=== PATIENT | male | born 1960 | race Caucasian/White ===

== ENCOUNTER 2021-02-02 15:13 | Outpatient (REF) | payer OTHER, SELFPAY ==
--- NOTE | ~2021-02-02 | XR_ITS ---
EXAMINATION: LUMBAR SPINE 2 VIEWS. CERVICAL SPINE COMPLETE 6 VIEWS. CLINICAL INFORMATION: Pain. Pain COMPARISON: None TECHNIQUE: 6 views cervical spine. 2 views lumbar spine. FINDINGS: Lumbar spine: There is advanced disc space narrowing at L4-L5 with anterior and posterior spurring and moderate disc space narrowing L5-S1. No fracture or destructive process. Cervical spine: Prevertebral soft tissues are normal. There is advanced disc space narrowing C6-C7 with anterior and posterior spurring and there is mild anterior spondylitic change at C5-C6. No fracture or destructive process. There is mild encroachment on the right and left C5-C7 neural foramen on the basis of spurs. The lateral masses of C1 and odontoid are intact. XR/XR lumbar spine 2-3V IMPRESSION: Multifocal degenerative changes as described.
--- NOTE | ~2021-02-02 | XR_ITS ---
EXAMINATION: LUMBAR SPINE 2 VIEWS. CERVICAL SPINE COMPLETE 6 VIEWS. CLINICAL INFORMATION: Pain. Pain COMPARISON: None TECHNIQUE: 6 views cervical spine. 2 views lumbar spine. FINDINGS: Lumbar spine: There is advanced disc space narrowing at L4-L5 with anterior and posterior spurring and moderate disc space narrowing L5-S1. No fracture or destructive process. Cervical spine: Prevertebral soft tissues are normal. There is advanced disc space narrowing C6-C7 with anterior and posterior spurring and there is mild anterior spondylitic change at C5-C6. No fracture or destructive process. There is mild encroachment on the right and left C5-C7 neural foramen on the basis of spurs. The lateral masses of C1 and odontoid are intact. XR/XR cervical spine min 6V IMPRESSION: Multifocal degenerative changes as described.
[2021-02-02 16:05] LABS: MANUAL DIFF FLAG NO
[2021-02-02 16:13] LABS: Basophils Absolute Auto 0.1 X10*3/uL (0.0-0.2); Basophils Percent Auto 0.8 % (0-2); Eosinophils Absolute Auto 0.3 X10*3/uL (0.0-0.4); Eosinophils Percent Auto 4.7 % (0-4); Hematocrit 39.3 % (42-52); Hemoglobin 12.7 g/dl (14.0-18.0); Imm Gran Abs Auto 0.01 X10*3/uL (0.00-0.03); Imm Gran Pct Auto 0.2 % (0.0-0.4); Lymphocytes Absolute Auto 1.7 X10*3/uL (1.2-4.9); Lymphocytes Percent Auto 27.3 % (20-40); Mean Corpuscular HGB Conc 32.3 g/dl (31.0-36.0); Mean Corpuscular Hemoglobin 28.5 pg (27.0-33.0); Mean Corpuscular Volume 88.3 fL (80-98); Mean Platelet Volume 9.4 fL (9.4-12.4); Monocytes Absolute Auto 0.6 X10*3/uL (0.1-1.2); Monocytes Percent Auto 9.5 % (2-11); Neutrophils Absolute Auto 3.7 X10*3/uL (2.0-8.3); Neutrophils Percent Auto 57.5 % (45-73); Platelet Count 355 X10*3/uL (160-400); Red Blood Count 4.45 X10*6/uL (4.60-5.80); Red Cell Distribution Width 14.1 % (11.0-16.0); White Blood Count 6.3 X10*3/uL (4.8-10.8)
[2021-02-02 16:44] LABS: Alanine Aminotransferase 21 U/L (0-40); Albumin Level 4.3 g/dL (3.5-5.0); Alkaline Phosphatase 70 U/L (39-117); Anion Gap 11 (12-20); Aspartate Amino Transferase 47 U/L (5-37); Bilirubin Total < 0.2 mg/dL (0.0-1.0); Blood Urea Nitrogen 15 mg/dL (9-16); Calcium 9.6 mg/dL (8.4-10.2); Carbon Dioxide 29 mmol/L (22-29); Chloride 104 mmol/L (96-108); Cholesterol 170 mg/dL; Estimated Glomerular Filt Rate > 60; Glucose Random 94 mg/dL (60-115); HDL Cholesterol 56 mg/dL; LDL Cholesterol Calculated 84 mg/dl; Potassium 4.8 mmol/L (3.3-5.1); Sodium 139 mmol/L (135-145); Total Protein 7.1 g/dL (6.5-8.0); Triglycerides 150 mg/dL
[2021-02-02 17:00] LABS: Prostate Specific Antigen 0.37 ng/mL (<0.05-4.0)
== END 2021-02-02 15:14 | disposition home or self-care (01) ==
LOC: HO.XRAY 15:13
PROVIDERS: PCP Internal Medicine; Visit Provider Internal Medicine
DX: Z00.00 Encounter for general adult medical examination without abnormal findings (principal); Z12.5 Encounter for screening for malignant neoplasm of prostate; M54.2 Cervicalgia; M54.5 Low back pain
CPT/HCPCS: 36415; 72052; 72100; 80053; 80061; 84153; 85025

== ENCOUNTER 2021-02-20 13:48 | Outpatient (REF) | payer OTHER, SELFPAY ==
--- NOTE | ~2021-02-20 | MR_ITS ---
EXAMINATION: MR CERVICAL SPINE WITHOUT CONTRAST CLINICAL INFORMATION: Right arm numbness. COMPARISON: X-ray cervical spine dated 02/03/2020. TECHNIQUE: MRI of the cervical spine was obtained using routine sequences without contrast. FINDINGS: VERTEBRAL BODIES AND PARASPINAL SOFT TISSUES: The marrow signal is within normal limits. There are no compression fractures. Mild retrosubluxation evident at C4-C5. There is a mild anterolisthesis at the C5-C6 level with mild posterior endplate edema. The paraspinal soft tissues appear normal. The vertebral artery flow voids are maintained. The imaged lung apices are grossly clear. CERVICOMEDULLARY JUNCTION AND VISUALIZED POSTERIOR FOSSA: The craniovertebral junction and imaged portions of the brain parenchyma appear normal. There is T2 hyperintense signal abnormality within the cord at the C5-C6 level due to severity of central canal stenosis. No syrinx is seen. SPINAL LEVELS: C2-C3: No disc pathology, central canal stenosis, or foraminal narrowing. C3-C4: Central disc protrusion superimposed upon a broad-based disc-osteophyte complex flattens the ventral thecal sac with mild impression upon the anterior cord. Very mild central canal stenosis. Severe right foraminal narrowing evident from bulky uncovertebral joint spurring. C4-C5: Left paracentral disc protrusion superimposed upon a disc-osteophyte complex with ventral cord distortion and mild central canal stenosis. Severe bilateral foraminal narrowing. C5-C6: Anterior subluxation and broad-based disc-osteophyte complex with posterior ligamentous thickening and facet arthropathy resulting in high-grade central canal stenosis and effacement of CSF within the thecal sac. Severe bilateral foraminal narrowing. Cord compression with signal change which may represent edema and/or myelomalacia. C6-C7: Broad-based left paracentral disc protrusion superimposed upon a disc-osteophyte complex and thickening of the ligamentum flavum resulting in severe central canal stenosis and [id number] cord distortion without intramedullary signal change. Severe bilateral foraminal narrowing. C7-T1: Minimal annular bulge. No central canal stenosis or foraminal encroachment. MR/MR cervical spine wo con IMPRESSION: High-grade central canal stenosis due to spondylitic changes at the C5-C6 level with a mild anterolisthesis. Signal abnormality within the cord which may be due to edema and/or myelomalacia. Severe bilateral foraminal narrowing. Broad-based left paracentral disc protrusion and disc-osteophyte complex at the C6-C7 level with severe central canal stenosis and [id number] cord deformity. Severe foraminal narrowing. Left paracentral disc protrusion and disc osteophyte complex at the C4-C5 level with significant foraminal encroachment and mild central canal stenosis. Central disc protrusion and disc-osteophyte complex at C3-C4 with mild impression upon the ventral cord. Severe right foraminal narrowing with uncovertebral joint spurring. Imaging findings reported to Dr. Raymond at 1:13 PM on 02/22/2021.
== END 2021-02-20 13:49 | disposition home or self-care (01) ==
LOC: HO.MRI 13:48
PROVIDERS: PCP Internal Medicine; Visit Provider Internal Medicine
DX: R20.2 Paresthesia of skin (principal); M48.02 Spinal stenosis, cervical region
CPT/HCPCS: 72141

== ENCOUNTER 2021-03-26 07:16 | Outpatient (REF) | payer OTHER, SELFPAY ==
--- NOTE | ~2021-03-26 | MR_ITS ---
EXAMINATION: MR LUMBAR SPINE WITHOUT CONTRAST CLINICAL INFORMATION: Low back pain. Right leg numbness and tingling. No history of trauma. COMPARISON: Lumbar spine radiographs 02/02/2021. TECHNIQUE: MRI of the lumbar spine was obtained using routine sequences without contrast. FINDINGS: VERTEBRAL BODIES AND PARASPINAL STRUCTURES: Four lumbar-type vertebral bodies are identified with near complete bilateral sacralization of the presumed L5 vertebral body. A rudimentary intervertebral disc is noted at the presumed level of L5-S1. Vertebral bodies are enumerated with reference to the inferior most rib-bearing vertebral body which is presumed to represent T12. 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 The L2 vertebral body demonstrates a 1.8 cm diameter rounded focus with intrinsic high T1-weighted signal intensity having the appearance of a hemangioma. Moderate endplate discogenic marrow signal changes are noted at L3-L4. CONUS MEDULLARIS AND CAUDA EQUINA: Normal, terminating at the level of T12-L1.. SPINAL LEVELS: T12-L1: No central or foraminal stenoses. Normal intervertebral disc. L1-L2: No central or foraminal stenoses. Mild bilateral ligamentum flavum hypertrophy. L2-L3: Mild central stenosis. Mild bilateral foraminal stenosis. Findings arise in the setting of a mild posterior broad-based disc bulge with bilateral intraforaminal extension. Furthermore, mild bilateral ligamentum flavum hypertrophy is noted. L3-L4: Moderate right foraminal stenosis. Mild central stenosis. Mild left foraminal stenosis. Findings are noted in the setting of a mild left and moderate posterior broad-based disc with bilateral intraforaminal extension which in combination with moderate right facet hypertrophic changes results in approximately 50% right foraminal narrowing with mild impingement upon the right L3 nerve roots. L4-L5: Marked right foraminal stenosis with right L4 nerve root impingement. Moderate central disc protrusion with mild central stenosis. Moderate left foraminal stenosis with mild left L4 nerve root impingement. Greater than 75% right foraminal stenosis is present secondary to a right intraforaminal disc protrusion with an overlying 3 mm caudal disc extrusion projecting into the right neural foramen in combination with moderate right facet hypertrophic changes (series 2 image 11). A central mild disc protrusion with annular T2 hyperintensity which may represent an annular fissure partially effaces the ventral thecal sac CSF space without impingement upon the adjacent traversing nerve roots. 50-75% left foraminal narrowing secondary to an intraforaminal disc protrusion and mild anterior extension of moderate left facet hypertrophic changes is noted. L5-S1: A rudimentary intervertebral disc is present at this level. No central or foraminal stenoses are noted. 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 MR/MR lumbar spine wo con IMPRESSION: 1. 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 The presence of these vertebral body anomalies may give rise to ambiguity in vertebral body enumeration. Within the enumeration scheme employed for this report, a rudimentary intervertebral disc space is present at L5-S1. 2. L4-L5 marked right foraminal stenosis with right L4 nerve root impingement. 3. L4-L5 moderate left foraminal stenosis with mild left L4 nerve root impingement. 4. L3-L4 moderate right foraminal stenosis with mild right L3 nerve root impingement. 5. Elsewhere in the lumbar spine, multilevel chronic spondylosis is noted without associated direct nerve root impingement or marked central or foraminal stenoses.
== END 2021-03-26 07:17 | disposition home or self-care (01) ==
LOC: HO.MRI 07:16
PROVIDERS: PCP Internal Medicine; Visit Provider Internal Medicine
DX: M54.16 Radiculopathy, lumbar region (principal)
CPT/HCPCS: 72148

== ENCOUNTER 2021-04-11 11:53 | Outpatient (REF) | payer OTHER, SELFPAY ==
[2021-04-11 14:06] LABS: MANUAL DIFF FLAG NO
[2021-04-11 14:10] LABS: Basophils Percent Auto 0.6 % (0-2); Eosinophils Absolute Auto 0.6 X10*3/uL (0.0-0.4); Eosinophils Percent Auto 9.1 % (0-4); Hemoglobin 13.2 g/dl (14.0-18.0); Imm Gran Abs Auto 0.03 X10*3/uL (0.00-0.03); Imm Gran Pct Auto 0.4 % (0.0-0.4); Lymphocytes Absolute Auto 1.7 X10*3/uL (1.2-4.9); Lymphocytes Percent Auto 24.6 % (20-40); Mean Corpuscular HGB Conc 32.2 g/dl (31.0-36.0); Mean Platelet Volume 9.6 fL (9.4-12.4); Monocytes Absolute Auto 0.7 X10*3/uL (0.1-1.2); Monocytes Percent Auto 10.1 % (2-11); Neutrophils Absolute Auto 3.7 X10*3/uL (2.0-8.3); Neutrophils Percent Auto 55.2 % (45-73); Platelet Count 322 X10*3/uL (160-400); Red Blood Count 4.71 X10*6/uL (4.60-5.80); Red Cell Distribution Width 14.6 % (11.0-16.0); White Blood Count 6.7 X10*3/uL (4.8-10.8)
[2021-04-11 14:21] LABS: Anion Gap 10 (12-20); Blood Urea Nitrogen 14 mg/dL (9-16); Calcium 9.9 mg/dL (8.4-10.2); Carbon Dioxide 30 mmol/L (22-29); Chloride 105 mmol/L (96-108); Estimated Glomerular Filt Rate > 60; Glucose Random 76 mg/dL (60-115); Potassium 4.3 mmol/L (3.3-5.1); Sodium 141 mmol/L (135-145)
== END 2021-04-11 11:54 | disposition home or self-care (01) ==
LOC: HO.10HDL 11:53
PROVIDERS: Visit Provider Internal Medicine
DX: Z02.1 Encounter for pre-employment examination (principal)
CPT/HCPCS: 36415; 80048; 85025

== ENCOUNTER 2021-07-13 07:52 | Outpatient (REF) | payer OTHER, SELFPAY ==
[2021-07-13 10:18] LABS: MANUAL DIFF FLAG NO
[2021-07-13 10:23] LABS: Basophils Percent Auto 0.6 % (0-2); Eosinophils Absolute Auto 0.2 X10*3/uL (0.0-0.4); Eosinophils Percent Auto 4.8 % (0-4); Hematocrit 41.2 % (42.0-52.0); Hemoglobin 13.4 g/dl (14.0-18.0); Imm Gran Abs Auto 0.01 X10*3/uL (0.00-0.03); Imm Gran Pct Auto 0.2 % (0.0-0.4); Lymphocytes Absolute Auto 1.8 X10*3/uL (1.2-4.9); Lymphocytes Percent Auto 36.5 % (20-40); Mean Corpuscular HGB Conc 32.5 g/dl (31.0-36.0); Mean Corpuscular Hemoglobin 28.8 pg (27.0-33.0); Mean Corpuscular Volume 88.6 fL (80.0-98.0); Mean Platelet Volume 9.7 fL (9.4-12.4); Monocytes Absolute Auto 0.5 X10*3/uL (0.1-1.2); Neutrophils Absolute Auto 2.3 x10*3/uL (2.0-8.3); Neutrophils Percent Auto 47.9 % (45-73); Platelet Count 316 X10*3/uL (160-400); Red Blood Count 4.65 X10*6/uL (4.60-5.80); Red Cell Distribution Width 14.9 % (11.0-16.0); White Blood Count 4.8 X10*3/uL (4.8-10.8)
[2021-07-13 10:50] LABS: Alanine Aminotransferase 26 U/L (0-40); Albumin Level 4.2 g/dL (3.5-5.0); Alkaline Phosphatase 72 U/L (39-117); Anion Gap 10 (12-20); Aspartate Amino Transferase 45 U/L (5-37); Bilirubin Total 0.5 mg/dL (0.0-1.0); Blood Urea Nitrogen 19 mg/dL (9-16); Calcium 9.4 mg/dL (8.4-10.2); Carbon Dioxide 26 mmol/L (22-29); Chloride 106 mmol/L (96-108); Estimated Glomerular Filt Rate > 60; Glucose Random 117 mg/dL (60-115); Iron 66 mcg/dL (45-160); Percent Iron Saturation 23 % (15-50); Potassium 4.3 mmol/L (3.3-5.1); Sodium 138 mmol/L (135-145); Total Iron Binding Capacity 287 mcg/dL (228-428); Unsaturated Iron Binding 221 ug/dL
== END 2021-07-13 07:53 | disposition home or self-care (01) ==
LOC: HO.10HDL 07:52
PROVIDERS: Visit Provider Internal Medicine
DX: D64.9 Anemia, unspecified (principal); E78.00 Pure hypercholesterolemia, unspecified
CPT/HCPCS: 36415; 80053; 83540; 85025